=== PATIENT | male | born 2000 | race Asian ===

== ENCOUNTER 2022-03-19 14:06 | Emergency (ER) | payer OTHER, SELFPAY ==
[2022-03-19] MEDS ORDERED: Ibuprofen 200 MG TAB ONE (14:55)
== END 2022-03-19 16:25 | disposition home or self-care (01) ==
LOC: CSHERS 14:06
DX: S63.501A Unspecified sprain of right wrist, initial encounter (principal); M79.641 Pain in right hand; V43.62XA Car passenger injured in collision with other type car in traffic accident, initial encounter; W22.12XA Striking against or struck by front passenger side automobile airbag, initial encounter